=== PATIENT | female | born 1975 | race Caucasian/White ===

== ENCOUNTER → 2018-08-14 | Outpatient (CLI) | payer OTHER | LOC: RAD 10:40 | DX: N60.01 Solitary cyst of right breast (principal); N60.02 Solitary cyst of left breast ==

== ENCOUNTER → 2018-08-16 | Outpatient (CLI) | payer OTHER ==
--- NOTE | 2018-08-20 12:06 | PATH ---
[facility] [address] [place] [address] PATHOLOGY RPT PROCEDURE Name: TANNER MUHAMMAD Room #: REG PINEDA Eli#: [id number] ������������������ Admission: 08/16/18 ������������������ Date of : 73 Discharge: Report #: [id number] Path Case #: [id number] [facility] Accession Number: [id number] . 01 Material submitted: . breast - RIGHT BREAST MASS, 1:00, 3CMFN. Modifiers: right, 1:00 . 01 Clinical history: . Right breast mass . 02 Diagnosis: Breast, right breast mass 1:00 3 cm from nipple, ultrasound guided needle core biopsy: - INVASIVE POORLY DIFFERETIATED DUCTAL ADENOCARCINOMA, JOHNNY GRADE 3. 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 LB/08/19/2018 . 02 Comment: Specimen type: Needle core biopsy Tumor site: Right breast mass 1:00 3 cm from nipple Tumor quantitation: 1.5 cm in greatest dimensions in a single core in contiguous length Histologic type: Invasive ductal carcinoma Histologic grade: Magna grade 3 Tubules, nuclei and mitoses: 3, 2 and 3 respectively (15 mitoses in approximately 6 high power jackson at 40X) LVSI: Rare suspicious foci, indeterminate Microcalcifications: Present in invasive carcinoma and ductal carcinoma in situ Markers: ER, [place], Ki-67 and Her2/everett Block: A1 . Co-review: Dr. Patrica Jackson . Findings are telephoned to Ms. Galeana, in our [facility] at 1:30 p.m. on 08/19/18. (IUV/db; 08/19/2018) . 02 Electronically signed: . Shelley Maxwell MD, Pathologist NPI- [id number] . 01 Gross description: . Received in formalin labeled "Tanner Muhammad, right breast 1:00, 3 cm," and additionally labeled on the requisition as "FN," are multiple needle cores of yellow-moran fibrofatty tissue measuring 2.1 x 1.5 x 0.[address] [address] PATHOLOGY RPT PROCEDURE Name: TANNER MUHAMMAD ANN Room #: REG CLI Alcira#: [id number] ������������������ Admission: 08/16/18 ������������������ Date of : 73 Discharge: Report #: [id number] Path Case #: [id number] in aggregate dimensions. The tissue is submitted in its entirety in cassette A1 through A3. The cold ischemic time is 5 minutes. The total formalin fixation time is greater than 7 hours and less than 72 hours. (TSD; 08/16/2018) TOB/TOB . 02 Pathologist provided ICD-10: C50.911 . 02 CPT . 929688 Specimen Comment: A courtesy copy of this report has been sent to Specimen Comment: [phone], . Specimen Comment: Report sent to / DR BENNETT Performed at: [address], [place] [id number] MD Hawk Young MD Phone: [phone] Performed at: [address] [id number] MD Shelley Maxwell MD Phone: [phone]
== END | disposition home or self-care (01) ==
LOC: ULTRA 12:03
DX: C50.911 Malignant neoplasm of unspecified site of right female breast (principal)